=== PATIENT | male | born 1990 | race Two or more races ===

== ENCOUNTER 2017-09-17 16:39 | Emergency (ER) | payer SELFPAY ==
[~2017-09-17] VITALS: Ht 157.5 cm; Wt 58.7 kg
[2017-09-17 16:41] VITALS: BP 150/89
== END 2017-09-17 18:53 | disposition home or self-care (01) ==
LOC: ED 18:00
DX: R07.89 Other chest pain (principal)
CPT/HCPCS: 36415; 71046; 85379; 93005; 99285